=== PATIENT | male | born 1995 | race African-American/Black ===

== ENCOUNTER 2024-12-16 00:42 | Inpatient (IN) | payer OTHER ==
[~2024-12-16] VITALS: Ht 170.2 cm; Wt 84.5 kg
[2024-12-16] MEDS: UNRESOLVED CLARIFICATION ENTRY XX SCH (00:01)
[2024-12-16 00:10] VITALS: BP 144/77; TEMP 97.9; O2SAT 99
[2024-12-16] MEDS ORDERED: MORPHINE 4 MG/ML 1 ML VIAL IV PRN ×2 (02:25)
[2024-12-16] MEDS: NS (Normal Saline) 0.9% 1,000 ML IV SCH (02:43)
[2024-12-16 02:47] LABS: PLATELET COUNT, AUTOMATED 172 10^3/uL (150-450)
[2024-12-16 03:16] LABS: PHOSPHORUS LEVEL 4.4 MG/DL (2.5-4.9)
[2024-12-16 03:20] LABS: ALT/SGPT 226 U/L (7.0-40); CALCIUM LEVEL 8.0 MG/DL (8.5-10.1); CARBON DIOXIDE LEVEL 28 MMOL/L (20-31); CHLORIDE LEVEL 109 MMOL/L (98-107); CREATININE FOR GFR 0.81 MG/DL (0.70-1.30); GLOMERULAR FILTRATION RATE > 90.0 (>60); MAGNESIUM LEVEL 1.9 MG/DL (1.8-2.4); POTASSIUM SERUM 4.2 MMOL/L (3.5-5.1); SODIUM LEVEL 144 MMOL/L (136-145)
[2024-12-16 03:44] LABS: APPEARANCE, URINE CLEAR (CLEAR); BACTERIA, URINE AUTO NEGATIVE (NEGATIVE); BILIRUBIN, URINE AUTO NEGATIVE (NEGATIVE); BLOOD, URINE BLOOD 3+ (NEGATIVE); GLUCOSE, URINE (UA) AUTO NEGATIVE (NEGATIVE); KETONE, URINE AUTO NEGATIVE (NEGATIVE); LEUKOCYTE ESTERASE, URINE AUTO NEGATIVE (NEGATIVE); MUCUS, URINE SMALL (NEGATIVE); NITRITE, URINE AUTO NEGATIVE (NEGATIVE); PROTEIN, URINE AUTO NEGATIVE (NEGATIVE); RBC, URINE AUTO 0 /HPF (0-3); SPECIFIC GRAVITY URINE AUTO 1.010 (1.002-1.035); SQUAMOUS EPITHELIAL CELL UR AU 0 /HPF (0-6); UROBILINOGEN, URINE AUTO 0.2 mg/dL (0.0-2.0); WBC, URINE AUTO 1 /HPF (0-3)
[2024-12-16 03:48] VITALS: BP 139/76; TEMP 97.5; O2SAT 100
[2024-12-16 03:53] LABS: AST/SGOT 2008 U/L (<34)
[2024-12-16 04:30] LABS: CPK CREATINE PHOSPHOKINASE 159183.0 U/L (46-171)
[2024-12-16] MEDS ORDERED: MM S100C PO (04:45)
[2024-12-16] MEDS ORDERED: SENN-188 PO (04:47)
[2024-12-16] MEDS ORDERED: MIRA3350 PO (04:47)
[2024-12-16] MEDS ORDERED: HOME MED LIST COMPLETE! XX SCH (04:50)
[2024-12-16] MEDS ORDERED: ACETAMINOPHEN 325 MG TAB PO PRN (08:10)
[2024-12-16] MEDS: DOCUSATE SODIUM 100 MG CAPSULE PO SCH (08:59)
[2024-12-16] MEDS: ENOXAPARIN 40 MG/0.4 ML SYRINGE (J1650 PER 10MG) SC SCH (09:00)
[2024-12-16 12:04] VITALS: BP 127/75; TEMP 97.9; O2SAT 99
[2024-12-16 12:33] LABS: CALCIUM LEVEL 8.3 MG/DL (8.5-10.1); CARBON DIOXIDE LEVEL 30 MMOL/L (20-31); CHLORIDE LEVEL 107 MMOL/L (98-107); CREATININE FOR GFR 0.88 MG/DL (0.70-1.30); GLOMERULAR FILTRATION RATE > 90.0 (>60); POTASSIUM SERUM 4.4 MMOL/L (3.5-5.1); SODIUM LEVEL 143 MMOL/L (136-145)
[2024-12-16 12:46] LABS: ALT/SGPT 239.0 U/L (7.0-40); AST/SGOT 2020.0 U/L (<34)
[2024-12-16] MEDS: ONDANSETRON 4MG 2ML VIAL IV PRN (13:28)
[2024-12-16 13:36] LABS: CPK CREATINE PHOSPHOKINASE 160524 U/L (46-171)
[2024-12-16] MEDS: IBUPROFEN 400 MG TAB PO PRN (20:07)
[2024-12-16 20:09] VITALS: BP 133/79; TEMP 98.1; O2SAT 98
[2024-12-17 04:32] VITALS: BP 122/69; TEMP 97.9; O2SAT 99
[2024-12-17 08:27] LABS: ALT/SGPT 224 U/L (7.0-40); AST/SGOT 1417 U/L (<34); CALCIUM LEVEL 8.0 MG/DL (8.5-10.1); CARBON DIOXIDE LEVEL 28 MMOL/L (20-31); CHLORIDE LEVEL 108 MMOL/L (98-107); CPK CREATINE PHOSPHOKINASE 95819 U/L (46-171); CREATININE FOR GFR 0.85 MG/DL (0.70-1.30); GLOMERULAR FILTRATION RATE > 90.0 (>60); MAGNESIUM LEVEL 1.7 MG/DL (1.8-2.4); POTASSIUM SERUM 4.3 MMOL/L (3.5-5.1); SODIUM LEVEL 146 MMOL/L (136-145)
[2024-12-17 08:59] LABS: PHOSPHORUS LEVEL 4.4 MG/DL (2.5-4.9)
[2024-12-17] MEDS: MAG SULF 1GM/100ML (MAG RUN) 1 GM in IV 1 EA IV ONE (09:11)
[2024-12-17 12:16] VITALS: BP 144/64; TEMP 97.9; O2SAT 97
[2024-12-17] MEDS: SENNA 8.6 MG TAB PO SCH (15:01)
[2024-12-17] MEDS: MIRALAX *UNIT DOSE* 17 GM PACKET PO SCH (15:01)
[2024-12-17 20:00] VITALS: BP 140/74; TEMP 98.1; O2SAT 97
[2024-12-18 06:00] VITALS: BP 96/50; TEMP 97.9; O2SAT 99
[2024-12-18 06:07] VITALS: BP 118/60
[2024-12-18 06:41] LABS: BASO # 0.0 10^3/uL (0.0-0.2); BASO % 0.4 % (0.0-1.0); EOS # 0.2 10^3/uL (0.0-0.5); EOS % 2.9 % (0.0-3.0); LYMPH # 1.4 10^3/uL (1.5-5.0); LYMPH % 26.5 % (24.0-44.0); MONO # 0.4 10^3/uL (0.0-0.8); MONO % 6.6 % (2.0-8.0); NEUTROPHILS # 3.4 10^3/uL (1.5-8.5); NEUTROPHILS % 62.7 % (36.0-66.0); PLATELET COUNT, AUTOMATED 194 10^3/uL (150-450)
[2024-12-18 09:18] LABS: ALT/SGPT 251 U/L (7.0-40); AST/SGOT 1101 U/L (<34); CALCIUM LEVEL 8.7 MG/DL (8.5-10.1); CARBON DIOXIDE LEVEL 28 MMOL/L (20-31); CHLORIDE LEVEL 106 MMOL/L (98-107); CREATININE FOR GFR 0.80 MG/DL (0.70-1.30); GLOMERULAR FILTRATION RATE > 90.0 (>60); PHOSPHORUS LEVEL 5.2 MG/DL (2.5-4.9); POTASSIUM SERUM 4.2 MMOL/L (3.5-5.1); SODIUM LEVEL 142 MMOL/L (136-145)
[2024-12-18 09:22] LABS: CPK CREATINE PHOSPHOKINASE 48815 U/L (46-171)
[2024-12-18] MEDS ORDERED: IBUP600T42 PO (10:11)
[2024-12-18] MEDS: FLUZONE VACCINE TRI PF(25-26) 0.5ML SYRINGE IM.IMMUN ONE (10:51)
== END 2024-12-18 11:25 | DRG 351 ==
LOC: M MSPAV 00:42 → OBSVTOIN 00:42 → INTOOBSV 00:42
PROVIDERS: ADMIT Student in an Organized Health Care Education/Training Program; ATTEND Internal Medicine Nephrology
DX: M62.82 Rhabdomyolysis (principal); E86.0 Dehydration; J45.909 Unspecified asthma, uncomplicated; K59.00 Constipation, unspecified; Z87.891 Personal history of nicotine dependence